=== PATIENT | female | born 1945 | race Caucasian/White ===

== ENCOUNTER 2025-02-06 16:15 | Emergency (ER) | payer MEDICARE, SELFPAY ==
--- NOTE | ~2025-02-06 | CT_ITS ---
CLINICAL HISTORY: abd pain CT abdomen and pelvis with contrast Comparison: None provided Findings: LIMITED CHEST: Scarring/atelectasis at the lung bases. LIVER: Hepatic cysts. BILIARY: No gallbladder wall thickening, radiopaque stone, or ductal dilatation. PANCREAS: No mass or ductal dilatation. SPLEEN: No splenomegaly. KIDNEYS: No hydronephrosis or radiopaque stone. Small hypoattenuating lesions, too small to characterize however may represent cysts. ADRENALS: No nodule. VASCULAR: No aneurysm. RETROPERITONEUM: No lymphadenopathy or mass. BOWEL/MESENTERY: No evidence of obstruction. Colonic diverticulosis with severe inflammatory changes in the sigmoid colon where there is a 7.5 x 4.6 cm hyperdense collection. Normal appendix. ABDOMINAL WALL: No mass or significant abnormality. URINARY BLADDER: No focal wall thickening. PELVIC NODES: No pelvic lymphadenopathy. PELVIC ORGANS: Normal for age. BONES: No acute fracture. OTHER: Negative. IMPRESSION: Severe inflammatory changes of sigmoid diverticulitis with suggestion of enhancing abscess/hemorrhagic collection in the pelvis. This document has been electronically signed by: Jackie Novak MD on 02/06/2025 20:09:31
[2025-02-06 16:24] VITALS: BP 138/85; BP 160/80; PULSE 103; PULSE 80; RESP 20; TEMP 36.6; O2SAT 97; O2SAT 98; BMI 32.6
[2025-02-06 16:58] LABS: Hematocrit 41.1 % (37.0-47.0); Hemoglobin 13.6 g/dl (12.0-16.0); Imm Gran Abs Auto 0.07 X10*3/uL (0.00-0.03); Imm Gran Pct Auto 0.5 % (0.0-0.4); Lymphocytes Absolute Auto 0.6 X10*3/uL (1.2-4.9); MANUAL DIFF FLAG NO; Mean Corpuscular HGB Conc 33.1 g/dl (31.0-35.0); Mean Corpuscular Hemoglobin 30.9 pg (27.0-33.0); Mean Corpuscular Volume 93.4 fL (80.0-98.0); NRBC Abs Auto 0.000 X10*3/uL (0.0-0.012); NRBC Pct Auto 0.0 /100WBC (0.0-0.2); Platelet Count 207 X10*3/uL (160-400); Red Blood Count 4.40 X10*6/uL (4.20-5.50); White Blood Count 14.6 X10*3/uL (4.8-10.8)
[2025-02-06 17:14] LABS: Alanine Aminotransferase 35 U/L (0-31); Albumin Level 4.1 g/dL (3.5-5.0); Alkaline Phosphatase 136 U/L (39-117); Anion Gap 15 (12-20); Aspartate Amino Transferase 34 U/L (5-31); Blood Urea Nitrogen 17 mg/dL (9-16); Calcium 9.4 mg/dL (8.4-10.2); Carbon Dioxide 22 mmol/L (22-29); Chloride 105 mmol/L (96-108); Creatinine Clr Calc Pharmacy 88.1; Estimated Glomerular Filt Rate > 60; Lipase 22 U/L (8-78); Magnesium 1.9 mg/dL (1.6-2.6); Potassium 3.8 mmol/L (3.3-5.1); Sodium 138 mmol/L (135-145); Total Protein 7.0 g/dL (6.5-8.0)
[2025-02-06 17:19] VITALS: TEMP 37.9
--- NOTE | 2025-02-06 17:19 | PC.NURSE ---
pt comes from home with diffuse lower abd pain x2 weeks. today got worse. first temperature afebrile oral. Temporal scan then 100.2 Dr. Turner notified and instructed to get urine sample
[2025-02-06 18:15] VITALS: BP 146/75; PULSE 104; RESP 19; TEMP 39.3; O2SAT 95
--- NOTE | 2025-02-06 18:42 | ED_ITS ---
HPI - Abdominal Pain General Chief Complaint: Abdominal Pain Stated Complaint: Ab pain x1 day aching & worse with movement Time Seen by Provider: 02/06/25 17:11 History of Present Illness HPI narrative: Patient is an 79-year-old female presents today with having abdominal pain to the lower abdomen for the past few days. No fever no chills no radiation of the pain. Normal bowel movement. No history of abdominal surgery history of uterine prolapse in the past. No coughing or congestion or upper respiratory symptoms no diaphoresis. Patient is from home. No change in bowel movement. Related Data Allergies Allergy/AdvReac Type Severity Reaction Status Date / Time No Known Allergies Allergy Verified 02/06/25 16:34 Review of Systems Review of Systems Positive abdominal pain Yes all other systems are reviewed and are negative PMFSH Past Medical History Attestation statement: The following information was validated with the patient. Social History Social History Smoked in Last 30 Days: No Use of substances other than those prescribed or required for medical reasons: No Advance Directives: No Advance Directives Information Provided: No Do you have a plan to hurt others: No Plan Physical Exam ED Exam Exam: Appearance: Alert. Oriented X3. No acute distress. Eyes: Pupils equal, round and reactive to light. ENT: Pharynx normal. Neck: Normal inspection. Neck supple. No lymph nodes noted. No crepitus CVS: Normal heart rate and rhythm. Pulses normal. Normal S1 and S2 Respiratory: No respiratory distress. Breath sounds normal. No Wheezing. No rales Abdomen: Soft and nontender. No rigidity. No distention. good BS x4 Skin: Skin warm and dry. Normal skin color. Normal skin turgor. Extremities: No lower extremity edema. Neurovascular intact to all extremities. No Lacerations. No Rash Neuro: Oriented X 3. No motor deficit. No sensory deficit. Moving all extermities. No slurred speech Vital Signs: Vital Signs - 24 hr 02/06/25 16:24 02/06/25 17:19 02/06/25 18:15 Temperature 97.9 F 100.2 F 102.7 F H Pulse Rate 103 H 104 H Respiratory Rate 20 19 Blood Pressure 138/85 146/75 H Pulse Oximetry 97 95 Oxygen Delivery Method Room Air Room Air 02/06/25 20:28 02/06/25 22:47 Temperature 99 F Pulse Rate Respiratory Rate 16 Blood Pressure Pulse Oximetry Oxygen Delivery Method BMI result Body Mass Index 32.6 Medical Decision Making Medical Decision Making [facility] Narrative: 79 years old presents today with having lower abdominal pain. On exam patient had a prolapse uterus. I manually reduced the prolapse. Symptomatically feels slightly improved but patient has a fever 102. A CT scan of the abdomen pelvis was done as patient had lower abdominal pain. CT scan was positive for diverticulitis with a abscess noted. This finding was discussed with surgery on-call. Dr. Rivas. Dr. Rivas felt this is beyond the capability about Hospital. [place] patient needs an IR drain emergently. I then contacted [facility]. They are full. No capacity to take care patient. I contacted [facility]. Discussed the case with [facility] transfer deal. They did not want to patient. I then contacted [facility] transfer line. They accepted patient. Patient was started on antibiotics earlier namely a dose of Zosyn. IV fluid was given. Pain medication given. Lactate is 1.0 no evidence for severe sepsis. Risk and benefits of transfer explained to patient patient to be transferred to [facility] ED Differential Diagnosis Differential Diagnoses: The differential diagnosis associated with the presentation includes diverticulitis abscess perforation uterine prolapse kidney stone obstruction Admission/Observation Consideration of admission/observation: Escalation of care including admission/observation considered Consult Healthcare Provider Management of the patient was discussed with: Mica Washer Gluer ( [facility] transfer line. [facility] transfer line, [facility] transfer line, general surgery at [facility]) Lab Data [facility] Lab Attestation statement: I reviewed the patient's lab results. 02/06/25 16:53 02/06/25 16:53 Labs: Lab Results 02/06/25 02/06/25 Range/Units 16:53 18:30 WBC 14.6 H (4.8-10.8) X10*3/uL RBC 4.40 (4.20-5.50) X10*6/uL Hgb 13.6 (12.0-16.0) g/dl Hct 41.1 (37.0-47.0) % MCV 93.4 (80.0-98.0) fL MCH 30.9 (27.0-33.0) pg MCHC 33.1 (31.0-35.0) g/dl RDW 12.4 (11.0-16.0) % Plt Count 207 (160-400) X10*3/uL MPV 8.7 L (9.4-12.3) fL Immature Gran % (Auto) 0.5 H (0.0-0.4) % Neut % (Auto) 88.3 H (45-73) % Lymph % (Auto) 3.8 L (20-40) % [place] % (Auto) 7.2 (2-11) % Eos % (Auto) 0.0 (0-4) % Baso % (Auto) 0.2 (0-2) % Lymph # (Auto) 0.6 L (1.2-4.9) X10*3/uL [place] # (Auto) 1.1 (0.1-1.2) X10*3/uL Eos # (Auto) 0.0 (0.0-0.4) X10*3/uL Baso # (Auto) 0.0 (0.0-0.2) X10*3/uL Abs Immat Gran (auto) 0.07 H (0.00-0.03) X10*3/uL Absolute Neuts (auto) 12.9 H (2.0-8.3) x10*3/uL Absolute Nucleated RBC 0.000 (0.0-0.012) X10*3/uL Nucleated RBC % (auto) 0.0 (0.0-0.2) /100WBC Sodium 138 (135-145) mmol/L Potassium 3.8 (3.3-5.1) mmol/L Chloride 105 (96-108) mmol/L Carbon Dioxide 22 (22-29) mmol/L Anion Gap 15 (12-20) BUN 17 H (9-16) mg/dL Creatinine 0.60 (0.5-1.4) mg/dL Estim Creat Clear Calc 88.1 Estimated GFR > 60 Random Glucose 133 H (60-115) mg/dL Lactic Acid 1.0 (0.5-2.0) mmol/L Calcium 9.4 (8.4-10.2) mg/dL Magnesium 1.9 (1.6-2.6) mg/dL Total Bilirubin 1.0 (0.0-1.0) mg/dL AST 34 H (5-31) U/L ALT 35 H (0-31) U/L Alkaline Phosphatase 136 H (39-117) U/L Total Protein 7.0 (6.5-8.0) g/dL Albumin 4.1 (3.5-5.0) g/dL Lipase 22 (8-78) U/L Independent Interpretation I performed an independent interpretation of an: CT Scan ( positive fluid collection noted in the lower abdomen) Radiology Impression Discussion of test interpretation with radiology: I have reviewed the radiologist's reading. Chronic Conditions history of uterine prolapse Social Determinants Patient?s care significantly limited by Social Determinants of Health including: Problems related to primary support group Medications Administered Discontinued Medications Generic Name Dose Route Start Last Admin Trade Name Freq PRN Reason Stop Dose Admin Acetaminophen 975 mg 02/06/25 18:18 02/06/25 18:21 Acetaminophen 325 Mg Tablet PO 02/06/25 18:19 975 mg ONCE ONE Administration Acetaminophen 975 mg 02/06/25 18:42 02/06/25 19:14 Acetaminophen 325 Mg Tablet PO 02/06/25 18:43 Not Given ONCE ONE Hydromorphone HCl 0.5 mg 02/06/25 22:39 02/06/25 22:47 Hydromorphone Hcl 0.5 Mg/0.5 Ml Syringe IVPUSH 02/06/25 22:40 0.5 mg ONCE ONE Administration Protocol Sodium Chloride 1,000 mls @ 999 mls/hr 02/06/25 18:00 02/06/25 20:50 Ns IV 02/06/25 19:00 Infused .Q1H1M GALE Infusion Piperacillin Sod/Tazobactam 100 mls @ 200 mls/hr 02/06/25 18:23 02/06/25 19:11 Sod 4.5 gm/ Sodium Chloride IV 02/06/25 18:52 Infused ONCE ONE Infusion Iohexol 100 ml 02/06/25 19:38 02/06/25 19:38 Iohexol 350 Mg/Ml 100 Ml Infus..Btl IV 02/06/25 19:39 85 ml ONCE ONE Administration Critical Care Time Critical Care Time Critical Care Time: Yes Total Critical Care Time: 40 Attestation: I have personally provided 40 minutes of critical care time exclusive of time spent on separately billable procedures. Time includes review of lab data, radiology results, discussion with consultants, and monitoring for potential decompensation. Interventions were performed as documented above Discharge Plan Discharge Clinical Impression: Diverticulitis Patient Disposition: [facility] Print Language: Czech
[2025-02-06] MEDS: iohexoL 350 MG/ML 100 ML INFUS..BTL IV (19:38)
[2025-02-06 20:28] VITALS: TEMP 37.2
[2025-02-06 22:47] VITALS: RESP 16
[2025-02-06 23:20] VITALS: RESP 16
--- NOTE | 2025-02-06 23:25 | PC.NURSE ---
@this time this RN gave nurse to nurse report given to WHITNEY Garcia @[facility] ED, pt pending transport
[2025-02-07 00:15] VITALS: BP 126/88; PULSE 90; RESP 16; TEMP 37.2; O2SAT 96
== END 2025-02-07 00:19 | disposition short-term general hospital (02) ==
PROVIDERS: Emergency Provider Emergency Medicine Emergency Medical Services
DX: K57.20 Diverticulitis of large intestine with perforation and abscess without bleeding (principal); N81.4 Uterovaginal prolapse, unspecified; Z87.19 Personal history of other diseases of the digestive system; Z79.899 Other long term (current) drug therapy
CPT/HCPCS: 36415; 74177; 80053; 83605; 83690; 83735; 85025; 87040; 96361; 96365; 96375; 99285; J1171; J2543; Q9967

== ENCOUNTER → 2025-02-06 17:51 | Outpatient (BNV) | payer MEDICARE, SELFPAY | PROVIDERS: Emergency Provider Emergency Medicine Emergency Medical Services; Visit Provider Student in an Organized Health Care Education/Training Program | DX: K57.32 Diverticulitis of large intestine without perforation or abscess without bleeding (principal) | CPT/HCPCS: 74177 ==